=== PATIENT | female | born 1980 | race Caucasian/White ===

== ENCOUNTER 2022-11-22 11:15 | Inpatient (IN) ==
[2022-11-22] MEDS ORDERED: SODIUM CHLORIDE 0.9% 1,000 ML IV STA ×2 (12:23→14:57)
[2022-11-22] MEDS ORDERED: LORazepam 2 MG/1 ML VIAL IV STA (12:24)
[2022-11-22] MEDS ORDERED: ONDANSETRON 4 MG/2 ML VIAL IV STA (12:25)
[2022-11-22 12:41] LABS: Basophils % 0.2 % (0.0-0.8); Eosinophils % 0.2 % (0.00-10.9); Hematocrit 37.4 VOL% (35.7-47.0); Hemoglobin 13.3 GM/DL (12.0-16.0); Immature Granulocytes % 0.4 %; Immature Granulocytes Absolute 0.02 #; Lymphocytes # 0.6 10*3/uL (1.4-4.0); Lymphocytes % 11.1 % (21.3-54.2); Mean Corpuscular HGB Conc 35.6 GM/DL (32-36); Mean Corpuscular Volume 105.4 FL (87-102); Mean Platelet Volume 10.7 FL (9.6-12.0); Monocytes # 0.7 10*3/uL (0.11-0.8); Monocytes % 12.4 % (1.7-12.7); Neutrophils % 75.7 % (38.7-73.9); Platelet Count 104 T/CUMM (130-400); Red Blood Count 3.55 MC/CUMM (3.8-5.5); Red Cell Distribution Width 11.9 % (9.3-17.3); White Blood Count 5.3 T/CUMM (4-12)
[2022-11-22 12:53] LABS: Albumin 3.6 G/DL (3.4-5.0); Calcium 9.8 MG/DL (8.5-10.1); Osmolality,Calculated 255.9 MOS/KG (273-304); Potassium 3.1 MMOL/L (3.5-5.1); Total Protein 6.9 G/DL (6.4-8.2)
[2022-11-22] MEDS ORDERED: NICOTINE 21 MG/24 HR PATCH TRANSDERM PRN (14:52)
[2022-11-22] MEDS ORDERED: THIAMINE 200 MG/2 ML VIAL IV STA (14:57)
[2022-11-22] MEDS ORDERED: ACETAMINOPHEN 325 MG TABLET PO PRN (15:17)
[2022-11-22] MEDS ORDERED: DOCUSATE SODIUM 100 MG CAPSULE PO PRN (15:17)
[2022-11-22] MEDS ORDERED: LACTULOSE 20 GM/30 ML UDCUP PO PRN (15:17)
[2022-11-22] MEDS ORDERED: ALUMINUM/MAGNES/SIMETH MAX STR 30 ML UDCUP PO PRN (15:17)
[2022-11-22] MEDS ORDERED: ONDANSETRON 4 MG/2 ML VIAL IV PRN (15:17)
[2022-11-22] MEDS ORDERED: hydrALAZINE 20 MG/1 ML VIAL IV PRN (15:31)
[2022-11-22] MEDS ORDERED: POTASSIUM CHLORIDE RIDER 10 MEQ/100 ML PREMIX IV PRN (15:31)
[2022-11-22] MEDS ORDERED: MORPHINE 2 MG/1 ML SYRINGE IV PRN (15:38)
[2022-11-22 16:02] LABS: Glucose,Urine (UA) 100 mg/dL (Negative); Protein,Urine 30 mg/dL (Negative); Urine Appearance Clear (Clear); Urine Color Brown (Yellow)
[2022-11-22 16:03] LABS: Bilirubin,Urine Large mg/dL (Negative); Blood, Urine Trace mg/dL (Negative); Ketones,Urine >=160 mg/dL (Negative); Nitrite,Urine Positive (Negative)
[2022-11-22 16:04] LABS: Calcium Oxalate Crystals,Urine Occasional /HPF (Few); Mucus,Urine Many /LPF (Occasional); Squamous Epithelial Cell,Urine Occasional /HPF (0-10)
[2022-11-22] MEDS ORDERED: MAGNESIUM SULF RIDER 2 GM/50 ML PREMIX IV PRN (16:09)
[2022-11-22] MEDS ORDERED: MAGNESIUM SULF RIDER 4 GM/100 ML PREMIX IV PRN (16:09)
[2022-11-22 16:26] LABS: Barbiturates Screen,Urine Negative (Negative); Benzodiazepines Screen,Urine Negative (Negative); Cannabinoid Screen,Urine Negative (Negative); Opiate Screen,Urine Negative (Negative); Phencyclidine Screen,Urine Negative (Negative)
[2022-11-22 16:34] LABS: Hepatitis B Core IgM Quant 0.05 Index; Hepatitis B Surface Ag Quant < 0.10 Index; Hepatitis B Surface Ag Result Non-Reactive (NonReactive); Hepatitis C Virus Ab Quant < 0.02 Index; Hepatitis C Virus Ab Result Non-Reactive (NonReactive)
[2022-11-22] MEDS: LORazepam 2 MG/1 ML VIAL IV PRN (17:25)
[2022-11-22] MEDS: cefTRIAXone 1,000 MG in SODIUM CHLORIDE 0.9% 100 ML IV SCH (17:28)
[2022-11-22] MEDS: SODIUM CHLORIDE 0.9% 1,000 ML IV SCH (17:28)
[2022-11-22 19:12] LABS: Calcium 8.6 MG/DL (8.5-10.1); Osmolality,Calculated 266.1 MOS/KG (273-304); Potassium 3.5 MMOL/L (3.5-5.1)
[2022-11-22] MEDS: chlordiazePOXIDE 10 MG CAPSULE PO SCH (20:30)
[2022-11-22] MEDS: THIAMINE 100 MG TABLET PO SCH (20:30)
[2022-11-22] MEDS: ENOXAPARIN 40 MG/0.4 ML SYRINGE SUBCUT SCH (20:31)
[2022-11-23] MEDS: LORazepam 2 MG/1 ML VIAL IV PRN (00:28)
[2022-11-23] MEDS: SODIUM CHLORIDE 0.9% 1,000 ML IV SCH ×2 (02:02→08:35)
[2022-11-23 04:53] LABS: Basophils % 0.3 % (0.0-0.8); Eosinophils % 0.6 % (0.00-10.9); Hematocrit 32.4 VOL% (35.7-47.0); Hemoglobin 11.4 GM/DL (12.0-16.0); Immature Granulocytes % 0.3 %; Immature Granulocytes Absolute 0.01 #; Lymphocytes # 0.8 10*3/uL (1.4-4.0); Lymphocytes % 20.9 % (21.3-54.2); Mean Corpuscular HGB Conc 35.2 GM/DL (32-36); Mean Corpuscular Volume 107.3 FL (87-102); Mean Platelet Volume 10.1 FL (9.6-12.0); Monocytes # 0.4 10*3/uL (0.11-0.8); Monocytes % 11.3 % (1.7-12.7); Neutrophils % 66.6 % (38.7-73.9); Platelet Count 95 T/CUMM (130-400); Red Blood Count 3.02 MC/CUMM (3.8-5.5); Red Cell Distribution Width 11.9 % (9.3-17.3); White Blood Count 3.6 T/CUMM (4-12)
[2022-11-23 05:00] LABS: PT Patient Result 11.4 SECS (10.1-12.1)
[2022-11-23 05:11] LABS: Albumin 2.9 G/DL (3.4-5.0); Bilirubin,Total 2.5 MG/DL (0.20-1.00); Calcium 8.7 MG/DL (8.5-10.1); Osmolality,Calculated 268.8 MOS/KG (273-304); Potassium 2.9 MMOL/L (3.5-5.1); Risk Ratio 4.48; Total Protein 5.8 G/DL (6.4-8.2); VLDL Cholesterol 25.6 MG/DL
[2022-11-23 05:23] LABS: Platelet Estimate Decreased
[2022-11-23] MEDS ORDERED: POTASSIUM CHLORIDE 20 MEQ TABLET PO ONE (07:38)
[2022-11-23] MEDS ORDERED: MAGNESIUM SULF RIDER 2 GM/50 ML PREMIX IV ONE (07:40)
[2022-11-23] MEDS ORDERED: POTASSIUM CHLORIDE INJ 30 MEQ in LACTATED RINGERS 1,000 ML IV SCH (09:00)
[2022-11-23] MEDS: THIAMINE 100 MG TABLET PO SCH ×2 (09:08→20:47)
[2022-11-23] MEDS: FOLIC ACID 1 MG TABLET PO SCH (09:08)
[2022-11-23] MEDS: chlordiazePOXIDE 10 MG CAPSULE PO SCH ×3 (09:08→20:47)
[2022-11-23] MEDS: POTASSIUM CHLORIDE INJ 20 MEQ in LACTATED RINGERS 1,000 ML IV SCH ×3 (09:14→23:13)
[2022-11-23] MEDS: cefTRIAXone 1,000 MG in SODIUM CHLORIDE 0.9% 100 ML IV SCH (17:52)
[2022-11-23] MEDS: ENOXAPARIN 40 MG/0.4 ML SYRINGE SUBCUT SCH (20:50)
[2022-11-24 04:55] LABS: Basophils % 0.3 % (0.0-0.8); Eosinophils % 1.3 % (0.00-10.9); Hematocrit 30.8 VOL% (35.7-47.0); Hemoglobin 10.5 GM/DL (12.0-16.0); Immature Granulocytes % 0.3 %; Immature Granulocytes Absolute 0.01 #; Lymphocytes # 0.9 10*3/uL (1.4-4.0); Lymphocytes % 27.4 % (21.3-54.2); Mean Corpuscular HGB Conc 34.1 GM/DL (32-36); Mean Corpuscular Volume 108.5 FL (87-102); Mean Platelet Volume 9.9 FL (9.6-12.0); Monocytes # 0.4 10*3/uL (0.11-0.8); Monocytes % 13.9 % (1.7-12.7); Neutrophils % 56.8 % (38.7-73.9); Platelet Count 88 T/CUMM (130-400); Red Blood Count 2.84 MC/CUMM (3.8-5.5); White Blood Count 3.2 T/CUMM (4-12)
[2022-11-24 05:12] LABS: Albumin 2.5 G/DL (3.4-5.0); Bilirubin,Total 1.6 MG/DL (0.20-1.00); Potassium 3.3 MMOL/L (3.5-5.1)
[2022-11-24 05:21] LABS: Platelet Estimate Decreased
[2022-11-24] MEDS: POTASSIUM CHLORIDE INJ 20 MEQ in LACTATED RINGERS 1,000 ML IV SCH (06:43)
[2022-11-24] MEDS ORDERED: POTASSIUM CHLORIDE 20 MEQ TABLET PO ONE (07:35)
[2022-11-24] MEDS: FOLIC ACID 1 MG TABLET PO SCH (08:27)
[2022-11-24] MEDS: chlordiazePOXIDE 10 MG CAPSULE PO SCH ×2 (08:27→20:25)
[2022-11-24] MEDS: THIAMINE 100 MG TABLET PO SCH ×2 (08:27→20:25)
[2022-11-24] MEDS: POTASSIUM CHLORIDE INJ 30 MEQ in LACTATED RINGERS 1,000 ML IV SCH ×2 (09:29→18:46)
[2022-11-24 11:58] LABS: Folate 13.66 NG/ML (5.38-24.0)
[2022-11-24] MEDS: cefTRIAXone 1,000 MG in SODIUM CHLORIDE 0.9% 100 ML IV SCH (16:51)
[2022-11-25] MEDS: POTASSIUM CHLORIDE INJ 30 MEQ in LACTATED RINGERS 1,000 ML IV SCH (04:19)
[2022-11-25 05:47] LABS: Basophils % 0.6 % (0.0-0.8); Eosinophils # 0.1 10*3/uL (0.0-0.87); Immature Granulocytes % 0.6 %; Immature Granulocytes Absolute 0.02 #; Lymphocytes # 1.1 10*3/uL (1.4-4.0); Lymphocytes % 29.9 % (21.3-54.2); Mean Corpuscular HGB Conc 33.3 GM/DL (32-36); Mean Corpuscular Volume 110.4 FL (87-102); Monocytes # 0.5 10*3/uL (0.11-0.8); Monocytes % 13.4 % (1.7-12.7); Neutrophils % 53.5 % (38.7-73.9); Platelet Count 115 T/CUMM (130-400); Red Blood Count 2.99 MC/CUMM (3.8-5.5); Red Cell Distribution Width 12.7 % (9.3-17.3); White Blood Count 3.6 T/CUMM (4-12)
[2022-11-25 06:06] LABS: Albumin 2.7 G/DL (3.4-5.0); Bilirubin,Total 1.2 MG/DL (0.20-1.00); Calcium 9.1 MG/DL (8.5-10.1); Osmolality,Calculated 278.3 MOS/KG (273-304); Potassium 3.6 MMOL/L (3.5-5.1); Total Protein 5.2 G/DL (6.4-8.2)
[2022-11-25] MEDS: THIAMINE 100 MG TABLET PO SCH (09:26)
[2022-11-25] MEDS: chlordiazePOXIDE 10 MG CAPSULE PO SCH (09:26)
[2022-11-25] MEDS: FOLIC ACID 1 MG TABLET PO SCH (09:26)
[2022-11-25 12:02] VITALS: BP 138/90
== END 2022-11-25 13:10 | disposition home or self-care (01) | DRG 439 ==
LOC: N.ED 11:15 → N.EDINP 15:17 → SUATTDRO 15:17 → N.3E 16:15
PROVIDERS: ADMIT Internal Medicine; ATTEND Internal Medicine